=== PATIENT | male | born 1960 | race Caucasian/White ===

== ENCOUNTER 2022-03-05 08:39 | Outpatient (CLI) | payer BC ==
--- NOTE | 2022-03-05 10:25 | XRay Report ---
RIGHT SHOULDER 3 VIEW(S) INDICATION / CLINICAL INFORMATION: Pain in right shoulder. COMPARISON: None available. FINDINGS: BONES / JOINT(S): No acute fracture or subluxation. No significant arthritis. SOFT TISSUES: No significant abnormality. ADDITIONAL FINDINGS: None. IMPRESSION: 1. No acute findings. Signer Name: Chuy Hinkle MD Signed: 03/05/2022 10:20 AM Workstation Name: [id number]
== END 2022-03-05 08:40 | disposition home or self-care (01) ==
LOC: LAB 08:39 → XRAY 08:39
PROVIDERS: ATTEND Internal Medicine
DX: M25.511 Pain in right shoulder (principal)